=== PATIENT | female | born 1985 | race Two or more races ===

== ENCOUNTER 2024-02-05 13:26 | Inpatient (IN) | payer OTHER ==
[~2024-02-05] VITALS: Ht 157.5 cm; Wt 63.5 kg
[2024-02-05] MEDS ORDERED: KEPPRA1000 MG PO (14:00)
[2024-02-05] MEDS ORDERED: DEPAKOTE ER500 MG PO (14:00)
[2024-02-05] MEDS ORDERED: FELBATOL600 MG PO (14:01)
[2024-02-05] MEDS ORDERED: HALDOL DEC100 MG/1 M IM (14:02)
[2024-02-05] MEDS ORDERED: METFORMIN HCL500 M2 PO (14:02)
[2024-02-05] MEDS ORDERED: XCOPRI PO (14:03)
[2024-02-05] MEDS ORDERED: BENADRYL25 MG PO (14:04)
[2024-02-05] MEDS ORDERED: 0.9 % SODIUM CHLORIDE 500 ML IV ONE (14:45)
[2024-02-05] MEDS ORDERED: FAMOTIDINE/PF 20 MG/2 ML VIAL IV ONE (14:45)
[2024-02-05 16:00] LABS: HEMATOCRIT 42.8 % (36.0-45.00); HEMOGLOBIN 14.6 g/dL (12.0-15.00); MEAN CELL VOLUME 96.7 fL (80.00-100.00); MEAN CORPUSCULAR HEMOGLOBIN 33.1 pg (27.00-32.0); MEAN CORPUSCULAR HGB CONC 34.2 g/dl (32.0-36.0); PLATELET COUNT 249 K/uL (150-450); RED BLOOD COUNT 4.42 M/uL (4.00-6.00); RED CELL DISTRIBUTION WIDTH 13.9 % (11.5-14.5)
[2024-02-05] MEDS ORDERED: MEPERIDINE HCL 25 MG/ML AMPUL IV ONE (16:15)
[2024-02-05 16:22] LABS: ALBUMIN 3.8 gm/dL (3.4-5.0); BILIRUBIN TOTAL 0.27 mg/dL (0.3-1.2); CALCIUM 9.3 mg/dL (8.5-10.1); CREATININE SERUM 0.64 mg/dL (0.55-1.02); GFR 104.41; GLOBULINA 3.8 G/DL (2.4-3.5); POTASSIUM 3.51 mEq/L (3.5-5.1); TOTAL PROTEIN 7.6 gm/dL (6.4-8.2)
[2024-02-05 17:53] LABS: PH,URINE 6.5 (5.0-8.0); URINE APPEARANCE Clear; URINE BACTERIA 565.5 uL (0.0-1933); URINE BILIRRUBIN Negative (NEGATIVE); URINE BLOOD Negative; URINE COLOR Yellow; URINE EPITHELIAL CELLS 15.8 uL (0.0-38.8); URINE GLUCOSE Negative (NEGATIVE); URINE LEUKOCYTE Negative; URINE NITRATE Negative; URINE PROTEIN Negative (NEGATIVE); URINE RBC 13.7 uL (0.0-20.8); URINE UROBILINOGEN 0.2 E.U./dl; URINE WBC 5.2 uL (0.0-23.2)
[2024-02-05 18:00] LABS: URINE KETONE 40 (NEGATIVE)
[2024-02-05] MEDS ORDERED: DEXTROSE 50 % IN WATER 0.5 G/ML DISP.SYRIN IV PRN (21:45)
[2024-02-05] MEDS ORDERED: ONDANSETRON HCL 4 MG in 0.9 % SODIUM CHLORIDE 50 ML IV PRN (21:45)
[2024-02-05] MEDS ORDERED: PIPERACILLIN/TAZOBACTAM SODIUM 3.375 GM in DEXTROSE 5 % IN WATER 100 ML IV ONE (21:45)
[2024-02-05] MEDS ORDERED: 0.9 % SODIUM CHLORIDE 1,000 ML IV SCH (21:45)
[2024-02-05] MEDS ORDERED: MEPERIDINE HCL/PF 25 MG/ML VIAL IM PRN (21:45)
[2024-02-05] MEDS ORDERED: INSULIN LISPRO 1,000 UNIT/10 ML UNITS SUBCUTANEO PRN (21:45)
[2024-02-06] MEDS ORDERED: GABAPENTIN 300 MG CAPSULE PO SCH (01:27)
[2024-02-06] MEDS ORDERED: RINGERS SOLUTION,LACTATED 1,000 ML IV SCH ×2 (01:30→10:43)
[2024-02-06] MEDS ORDERED: MORPHINE SULFATE 4 MG/ML CARTRIDGE IV PRN (01:30)
[2024-02-06] MEDS ORDERED: SUGAMMADEX SODIUM 200 MG/2 ML VIAL IV ONE (04:15)
[2024-02-06] MEDS ORDERED: FAMOTIDINE/PF 20 MG in 0.9 % SODIUM CHLORIDE 8 ML IV PUSH SCH (09:00)
[2024-02-06 09:16] LABS: CALCIUM 8.8 mg/dL (8.5-10.1); CREATININE SERUM 0.66 mg/dL (0.55-1.02); GFR 100.77; MAGNESIUM 1.7 mg/dL (1.8-2.4); PHOSPHOROUS 3.9 mg/dL (2.5-4.9); POTASSIUM 3.96 mEq/L (3.5-5.1)
[2024-02-06] MEDS ORDERED: MAGNESIUM SULFATE IN WATER 50 ML IV NR (10:43)
[2024-02-06 12:00] VITALS: BP 127/83; O2SAT 98
[2024-02-06] MEDS ORDERED: LevETIRAcetam 500 MG/5 ML VIAL IV SCH (13:00)
[2024-02-06 16:00] VITALS: BP 152/80; O2SAT 100
[2024-02-06] MEDS ORDERED: DIVALPROEX SODIUM 500 MG TAB.ER.24H PO SCH (17:00)
[2024-02-06] MEDS ORDERED: POTASSIUM CHLORIDE/D5-0.45NACL 1,000 ML IV SCH (17:00)
[2024-02-06] MEDS ORDERED: LORazepam 2 MG/ML VIAL IV STA (19:16)
[2024-02-06] MEDS ORDERED: LORazepam 2 MG/ML VIAL IV PRN (19:30)
[2024-02-06] MEDS ORDERED: PANTOPRAZOLE SODIUM 40 MG/VIAL VIAL IV PUSH SCH (21:00)
[2024-02-06] MEDS ORDERED: PATIENTS OWN MEDICATION (MEDICAMENTO EN PISO) PO SCH (21:00)
[2024-02-07] VITALS: BP 150/80; O2SAT 98
[2024-02-07 06:10] LABS: HEMATOCRIT 32.5 % (36.0-45.00); HEMOGLOBIN 11.3 g/dL (12.0-15.00); MEAN CELL VOLUME 97.2 fL (80.00-100.00); MEAN CORPUSCULAR HEMOGLOBIN 33.9 pg (27.00-32.0); MEAN CORPUSCULAR HGB CONC 34.8 g/dl (32.0-36.0); PLATELET COUNT 262 K/uL (150-450); RED BLOOD COUNT 3.34 M/uL (4.00-6.00); RED CELL DISTRIBUTION WIDTH 14.8 % (11.5-14.5)
[2024-02-07 07:08] LABS: ALBUMIN 3.1 gm/dL (3.4-5.0); CALCIUM 9.3 mg/dL (8.5-10.1); CREATININE SERUM 0.68 mg/dL (0.55-1.02); GFR 97.36; MAGNESIUM 2.2 mg/dL (1.8-2.4); POTASSIUM 4.26 mEq/L (3.5-5.1)
[2024-02-07 07:27] LABS: PHOSPHOROUS 1.3 mg/dL (2.5-4.9)
[2024-02-07] MEDS ORDERED: DEXTROSE 5 % IN WATER 1,000 ML IV SCH (07:45)
[2024-02-07 07:47] LABS: HEMATOCRIT 33.6 % (36.0-45.00); HEMOGLOBIN 11.5 g/dL (12.0-15.00); MEAN CELL VOLUME 96.4 fL (80.00-100.00); MEAN CORPUSCULAR HGB CONC 34.3 g/dl (32.0-36.0); PLATELET COUNT 270 K/uL (150-450); RED BLOOD COUNT 3.49 M/uL (4.00-6.00); RED CELL DISTRIBUTION WIDTH 14.4 % (11.5-14.5)
[2024-02-07] MEDS ORDERED: NAPH,MB-DB/K PH,MBDB 1 PKT PACKET PO SCH (09:00)
[2024-02-07 09:57] VITALS: BP 160/82; O2SAT 98
[2024-02-07] MEDS ORDERED: LevETIRAcetam 5 MG/1 ML REDILUIDO IV SCH (13:00)
[2024-02-07 16:00] VITALS: BP 121/68; O2SAT 100
[2024-02-07] MEDS ORDERED: ENOXAPARIN SODIUM 40 MG/0.4 ML SYRINGE SUBCUTANEO SCH (17:00)
[2024-02-08 00:56] VITALS: BP 134/80; O2SAT 96
[2024-02-08] MEDS ORDERED: SUGAMMADEX SODIUM 200 MG/2 ML VIAL IV ONE (06:45)
[2024-02-08 07:14] LABS: HEMATOCRIT 36.5 % (36.0-45.00); HEMOGLOBIN 12.6 g/dL (12.0-15.00); MEAN CELL VOLUME 97.8 fL (80.00-100.00); MEAN CORPUSCULAR HEMOGLOBIN 33.7 pg (27.00-32.0); MEAN CORPUSCULAR HGB CONC 34.4 g/dl (32.0-36.0); PLATELET COUNT 253 K/uL (150-450); RED BLOOD COUNT 3.73 M/uL (4.00-6.00); RED CELL DISTRIBUTION WIDTH 14.5 % (11.5-14.5)
[2024-02-08 07:36] LABS: ALBUMIN 2.9 gm/dL (3.4-5.0); BILIRUBIN TOTAL 0.38 mg/dL (0.3-1.2); CALCIUM 9.1 mg/dL (8.5-10.1); CREATININE SERUM 0.68 mg/dL (0.55-1.02); GFR 97.36; GLOBULINA 3.3 G/DL (2.4-3.5); PHOSPHOROUS 2.6 mg/dL (2.5-4.9); POTASSIUM 3.47 mEq/L (3.5-5.1); TOTAL PROTEIN 6.2 gm/dL (6.4-8.2)
[2024-02-08 08:51] VITALS: BP 154/90; O2SAT 100
[2024-02-08] MEDS ORDERED: POTASSIUM CHLORIDE 20MEQ/100ML H2O PB IV ONE (14:00)
[2024-02-08 16:00] VITALS: BP 165/70; O2SAT 99
[2024-02-08] MEDS ORDERED: PATIENTS OWN MEDICATION (MEDICAMENTO EN PISO) PO SCH ×2 (21:00)
[2024-02-09 01:23] VITALS: BP 117/86; O2SAT 98
[2024-02-09] MEDS ORDERED: RINGERS SOLUTION,LACTATED 1,000 ML IV ONE (06:45)
[2024-02-09 07:42] LABS: CALCIUM 9.1 mg/dL (8.5-10.1); CREATININE SERUM 0.97 mg/dL (0.55-1.02); GFR 64.62; POTASSIUM 3.91 mEq/L (3.5-5.1)
[2024-02-09] MEDS ORDERED: PATIENTS OWN MEDICATION (MEDICAMENTO EN PISO) PO SCH ×2 (09:00)
[2024-02-09 10:01] VITALS: BP 145/89; O2SAT 96
[2024-02-09 17:00] VITALS: BP 107/84; O2SAT 98
[2024-02-10 00:47] VITALS: BP 170/80; O2SAT 98
[2024-02-10 07:33] LABS: HEMATOCRIT 34.6 % (36.0-45.00); HEMOGLOBIN 12.2 g/dL (12.0-15.00); MEAN CELL VOLUME 95.1 fL (80.00-100.00); MEAN CORPUSCULAR HEMOGLOBIN 33.4 pg (27.00-32.0); MEAN CORPUSCULAR HGB CONC 35.2 g/dl (32.0-36.0); PLATELET COUNT 359 K/uL (150-450); RED BLOOD COUNT 3.64 M/uL (4.00-6.00); RED CELL DISTRIBUTION WIDTH 14.3 % (11.5-14.5)
[2024-02-10 07:36] LABS: CALCIUM 9.1 mg/dL (8.5-10.1); CREATININE SERUM 0.64 mg/dL (0.55-1.02); GFR 104.41; POTASSIUM 3.69 mEq/L (3.5-5.1)
[2024-02-10 08:00] VITALS: BP 112/80; O2SAT 97
[2024-02-10] MEDS ORDERED: LevETIRAcetam 5 MG/1 ML REDILUIDO IV SCH (09:28)
[2024-02-10 19:02] VITALS: BP 124/90; O2SAT 97
[2024-02-10 23:48] VITALS: BP 154/73; O2SAT 98
[2024-02-11 09:50] VITALS: BP 148/74; O2SAT 98
[2024-02-11 16:28] VITALS: BP 159/94; O2SAT 99
[2024-02-12 10:23] LABS: HEMOGLOBIN 11.6 g/dL (12.0-15.00); MEAN CELL VOLUME 97.6 fL (80.00-100.00); MEAN CORPUSCULAR HEMOGLOBIN 33.4 pg (27.00-32.0); MEAN CORPUSCULAR HGB CONC 34.2 g/dl (32.0-36.0); PLATELET COUNT 372 K/uL (150-450); RED BLOOD COUNT 3.48 M/uL (4.00-6.00); RED CELL DISTRIBUTION WIDTH 14.8 % (11.5-14.5)
[2024-02-12 16:25] VITALS: BP 140/83; O2SAT 98
[2024-02-13] VITALS: BP 160/85; O2SAT 97
[2024-02-13 08:05] VITALS: BP 164/106; O2SAT 97
[2024-02-13] MEDS ORDERED: RINGERS SOLUTION,LACTATED 1,000 ML IV SCH (09:30)
[2024-02-13 12:29] LABS: CALCIUM 9.6 mg/dL (8.5-10.1); CREATININE SERUM 0.69 mg/dL (0.55-1.02); GFR 95.73; POTASSIUM 3.61 mEq/L (3.5-5.1)
[2024-02-13 15:42] VITALS: BP 137/93; O2SAT 95
[2024-02-14 00:55] VITALS: BP 136/80; O2SAT 96
[2024-02-14 08:24] VITALS: BP 123/85; O2SAT 95
[2024-02-14 12:30] LABS: CALCIUM 9.3 mg/dL (8.5-10.1); CREATININE SERUM 0.82 mg/dL (0.55-1.02); GFR 78.44; POTASSIUM 3.75 mEq/L (3.5-5.1)
[2024-02-14 15:39] VITALS: BP 147/96; O2SAT 98
[2024-02-15 00:05] VITALS: BP 139/86; O2SAT 98
[2024-02-15 07:11] LABS: CALCIUM 8.6 mg/dL (8.5-10.1); CREATININE SERUM 0.62 mg/dL (0.55-1.02); GFR 108.31
[2024-02-15 07:18] LABS: POTASSIUM 2.8 mEq/L (3.5-5.1)
[2024-02-15 08:26] VITALS: BP 126/87; O2SAT 95
[2024-02-15] MEDS ORDERED: POTASSIUM CHLORIDE/NACL 0.9% 1,000 ML IV SCH ×2 (09:32→21:45)
[2024-02-15] MEDS ORDERED: POTASSIUM BICARBONATE/CIT AC 25 MEQ TABLET.EFF PO SCH (13:00)
[2024-02-15] MEDS ORDERED: POTASSIUM CHLORIDE 10 MEQ CAPSULE PO SCH ×2 (13:00→17:00)
[2024-02-15 16:00] VITALS: BP 120/82; O2SAT 99
[2024-02-15 16:12] LABS: ANION GAP 7 (10.0-20.0); CALCIUM 8.4 mg/dL (8.5-10.1); CARBON DIOXIDE 33 mEq/L (21-32); CHLORIDE 110 mmol/L (98-107); GFR 94.15; GLUCOSE FASTING 125 mg/dL (65-100); SODIUM 147 mmol/L (136-145)
[2024-02-15 16:19] LABS: BLOOD UREA NITROGEN < 1 mg/dL (7-18); BUN CREA RATIO 1 (7.0-25.0); OSMOLALITY SERUM 290 MOSM/KG (275-295)
[2024-02-15 16:20] LABS: POTASSIUM 2.86 mEq/L (3.5-5.1)
[2024-02-16] VITALS: BP 138/90; O2SAT 95
[2024-02-16 07:04] LABS: CALCIUM 8.2 mg/dL (8.5-10.1); CREATININE SERUM 0.62 mg/dL (0.55-1.02); GFR 108.31; POTASSIUM 5.48 mEq/L (3.5-5.1)
[2024-02-16 08:00] VITALS: BP 101/57; O2SAT 97
== END 2024-02-16 14:00 | disposition home or self-care (01) | DRG 330 ==
LOC: ER 13:28 → SURG 21:40
PROVIDERS: Nurse Practitioner Family; Student in an Organized Health Care Education/Training Program; ADMIT Internal Medicine; ATTEND Internal Medicine
PROC: BW21YZZ Computerized Tomography (CT Scan) of Abdomen and Pelvis using Other Contrast (ICD-10-PCS; 2024-02-05)
PROC: 0DTN0ZZ Resection of Sigmoid Colon, Open Approach (ICD-10-PCS; principal; 2024-02-06)
PROC: 0D1E0Z4 Bypass Large Intestine to Cutaneous, Open Approach (ICD-10-PCS; 2024-02-06)
PROC: 0DJD0ZZ Inspection of Lower Intestinal Tract, Open Approach (ICD-10-PCS; 2024-02-06)
DX: K56.2 Volvulus (principal); E87.0 Hyperosmolality and hypernatremia; I97.89 Other postprocedural complications and disorders of the circulatory system, not elsewhere classified; K91.89 Other postprocedural complications and disorders of digestive system; F31.9 Bipolar disorder, unspecified; F20.9 Schizophrenia, unspecified; R56.9 Unspecified convulsions; K56.7 Ileus, unspecified

== ENCOUNTER 2024-04-03 08:33 | Outpatient (CLI) | payer OTHER ==
[~2024-04-03 08:33] MED LIST: BENADRYL25 MG PO; DEPAKOTE ER500 MG PO; FELBATOL600 MG PO; HALDOL DEC100 MG/1 M IM; KEPPRA1000 MG PO; METFORMIN HCL500 M2 PO; XCOPRI PO
== END 2024-04-03 08:36 | disposition home or self-care (01) ==
LOC: TOM 08:33
PROVIDERS: ATTEND Student in an Organized Health Care Education/Training Program
DX: Z93.3 Colostomy status (principal)
CPT/HCPCS: 74177; Q9965

== ENCOUNTER 2024-06-24 08:32 | Inpatient (IN) | payer OTHER ==
[~2024-06-24] VITALS: Ht 157.5 cm; Wt 62.6 kg
[2024-06-24 08:51] LABS: HEMATOCRIT 38.9 % (36.0-45.00); HEMOGLOBIN 13.2 g/dL (12.0-15.00); MEAN CELL VOLUME 97.1 fL (80.00-100.00); MEAN CORPUSCULAR HEMOGLOBIN 32.9 pg (27.00-32.0); MEAN CORPUSCULAR HGB CONC 33.9 g/dl (32.0-36.0); PLATELET COUNT 211 K/uL (150-450); RED BLOOD COUNT 4.01 M/uL (4.00-6.00); RED CELL DISTRIBUTION WIDTH 13.8 % (11.5-14.5)
[2024-06-24] MEDS ORDERED: KEPPRA XR500 MG PO (09:05)
[2024-06-24] MEDS ORDERED: CLONAZEPAM0.5 M1 PO (09:06)
[2024-06-24] MEDS ORDERED: MELATONIN5 M1 PO (09:07)
[2024-06-24] MEDS ORDERED: HALDOL DEC100 MG/1 M IM (09:08)
[2024-06-24 09:13] VITALS: BP 111/75
[2024-06-24 09:35] LABS: PH,URINE 6.5 (5.0-8.0); URINE APPEARANCE Clear; URINE BILIRRUBIN Negative (NEGATIVE); URINE BLOOD Negative; URINE COLOR Yellow; URINE GLUCOSE Negative (NEGATIVE); URINE KETONE Negative (NEGATIVE); URINE LEUKOCYTE Negative; URINE NITRATE Negative; URINE PROTEIN Negative (NEGATIVE); URINE UROBILINOGEN 0.2 E.U./dl
[2024-06-24 09:36] LABS: INR 0.95; PARTIAL THROMBOPLASTIN TIME 30.5 SECONDS (22.0-34.0); PROTHROMBIN TIME 10.4 SECONDS (9.0-11.5)
[2024-06-24 09:39] LABS: URINE BACTERIA 1277.7 uL (0.0-1933); URINE EPITHELIAL CELLS 22.1 uL (0.0-38.8); URINE RBC 2.3 uL (0.0-20.8); URINE WBC 14.7 uL (0.0-23.2)
[2024-06-24 09:47] LABS: URINE CAST 0.44 uL (0.0-1.40)
[2024-06-24 10:09] LABS: ALBUMIN 3.8 gm/dL (3.4-5.0); BILIRUBIN TOTAL 0.34 mg/dL (0.3-1.2); CALCIUM 9.2 mg/dL (8.5-10.1); CREATININE SERUM 0.6 mg/dL (0.55-1.02); GFR 111.88; GLOBULINA 3.4 G/DL (2.4-3.5); POTASSIUM 4.57 mEq/L (3.5-5.1); TOTAL PROTEIN 7.2 gm/dL (6.4-8.2)
[2024-07-02] MEDS ORDERED: BUPIVACAINE HCL/MPF 0.5% 30ML VIAL ONE (10:38)
[2024-07-02] MEDS ORDERED: CIPROFLOXACIN IN 5 % DEXTROSE 200 ML IV ONE (12:45)
[2024-07-02] MEDS ORDERED: METRONIDAZOLE/SODIUM CHLORIDE 100 ML IV ONE (12:45)
[2024-07-02] MEDS ORDERED: SUGAMMADEX SODIUM 200 MG/2 ML VIAL IV ONE (13:46)
[2024-07-02] MEDS ORDERED: MORPHINE SULFATE 4 MG/ML CARTRIDGE IV PRN (14:45)
[2024-07-02] MEDS ORDERED: RINGERS SOLUTION,LACTATED 1,000 ML IV SCH (14:45)
[2024-07-02] MEDS ORDERED: ONDANSETRON HCL 2 MG/ML VIAL IV PRN (14:45)
[2024-07-02] MEDS ORDERED: MORPHINE SULFATE 4 MG/ML VIAL IV ONE ×2 (15:00→15:30)
[2024-07-02 16:10] LABS: HEMATOCRIT 39.4 % (36.0-45.00); HEMOGLOBIN 13.3 g/dL (12.0-15.00); MEAN CORPUSCULAR HEMOGLOBIN 32.5 pg (27.00-32.0); MEAN CORPUSCULAR HGB CONC 33.8 g/dl (32.0-36.0); PLATELET COUNT 198 K/uL (150-450); RED CELL DISTRIBUTION WIDTH 14.1 % (11.5-14.5)
[2024-07-02] MEDS ORDERED: METRONIDAZOLE/SODIUM CHLORIDE 500 MG/100 ML PIGGYBACK IV ONE (16:17)
[2024-07-02 16:53] LABS: ALBUMIN 3.4 gm/dL (3.4-5.0); BILIRUBIN TOTAL 0.3 mg/dL (0.3-1.2); CALCIUM 8.8 mg/dL (8.5-10.1); CREATININE SERUM 0.69 mg/dL (0.55-1.02); GFR 95.22; GLOBULINA 2.9 G/DL (2.4-3.5); POTASSIUM 3.86 mEq/L (3.5-5.1); TOTAL PROTEIN 6.3 gm/dL (6.4-8.2)
[2024-07-02 16:56] VITALS: BP 132/84; O2SAT 96
[2024-07-02] MEDS ORDERED: METRONIDAZOLE/SODIUM CHLORIDE 500 MG/100 ML PIGGYBACK IV SCH (17:00)
[2024-07-02] MEDS ORDERED: GABAPENTIN 300 MG CAPSULE PO SCH (17:00)
[2024-07-02] MEDS ORDERED: ACETAMINOPHEN 325 MG TABLET PO SCH (17:00)
[2024-07-02 17:39] LABS: ALBUMIN 3.4 gm/dL (3.4-5.0); CALCIUM 8.7 mg/dL (8.5-10.1); CREATININE SERUM 0.72 mg/dL (0.55-1.02); GFR 90.65; MAGNESIUM 1.5 mg/dL (1.8-2.4); PHOSPHOROUS 3.3 mg/dL (2.5-4.9); POTASSIUM 3.88 mEq/L (3.5-5.1)
[2024-07-02] MEDS ORDERED: PATIENTS OWN MEDICATION (MEDICAMENTO EN PISO) PO SCH ×2 (17:41→18:30)
[2024-07-02] MEDS ORDERED: LevETIRAcetam 500 MG TAB. PO NR (18:30)
[2024-07-02 20:30] VITALS: BP 121/79; O2SAT 96
[2024-07-02] MEDS ORDERED: DIVALPROEX SODIUM 500 MG TABLET.DR PO SCH (21:00)
[2024-07-02] MEDS ORDERED: FAMOTIDINE/PF 20 MG/2 ML VIAL IV SCH (21:00)
[2024-07-02] MEDS ORDERED: CLONAZEPAM 0.5 MG TABLET PO SCH (21:00)
[2024-07-02] MEDS ORDERED: MELATONIN 5 MG TABLET PO SCH (21:00)
[2024-07-02] MEDS ORDERED: CIPROFLOXACIN IN 5 % DEXTROSE 400 MG/200 ML PIGGYBAG IV SCH (21:00)
[2024-07-03 00:01] VITALS: BP 125/80; O2SAT 98
[2024-07-03 08:00] VITALS: BP 113/75; O2SAT 95
[2024-07-03 08:49] LABS: HEMOGLOBIN 11.8 g/dL (12.0-15.00); MEAN CELL VOLUME 95.5 fL (80.00-100.00); MEAN CORPUSCULAR HEMOGLOBIN 33.2 pg (27.00-32.0); MEAN CORPUSCULAR HGB CONC 34.8 g/dl (32.0-36.0); PLATELET COUNT 187 K/uL (150-450); RED BLOOD COUNT 3.56 M/uL (4.00-6.00); RED CELL DISTRIBUTION WIDTH 13.6 % (11.5-14.5)
[2024-07-03] MEDS ORDERED: LevETIRAcetam 500 MG TAB. PO SCH (09:00)
[2024-07-03 09:32] LABS: CALCIUM 8.7 mg/dL (8.5-10.1); CREATININE SERUM 0.6 mg/dL (0.55-1.02); GFR 111.88; MAGNESIUM 1.5 mg/dL (1.8-2.4); PHOSPHOROUS 2.5 mg/dL (2.5-4.9); POTASSIUM 3.91 mEq/L (3.5-5.1)
[2024-07-03] MEDS ORDERED: MAGNESIUM SULFATE IN WATER 2 GM/50 ML PIGGYBAG IV NR (12:00)
[2024-07-03 16:00] VITALS: BP 114/78; O2SAT 96
[2024-07-03] MEDS ORDERED: ENOXAPARIN SODIUM 40 MG/0.4 ML SYRINGE SUBCUTANEO SCH (17:00)
[2024-07-04 00:46] VITALS: BP 116/81; O2SAT 95
[2024-07-04 08:00] VITALS: BP 115/80; O2SAT 97
[2024-07-04 11:36] LABS: HEMATOCRIT 34.5 % (36.0-45.00); HEMOGLOBIN 12.5 g/dL (12.0-15.00); MEAN CELL VOLUME 94.8 fL (80.00-100.00); MEAN CORPUSCULAR HEMOGLOBIN 34.3 pg (27.00-32.0); MEAN CORPUSCULAR HGB CONC 36.1 g/dl (32.0-36.0); PLATELET COUNT 193 K/uL (150-450); RED BLOOD COUNT 3.64 M/uL (4.00-6.00); RED CELL DISTRIBUTION WIDTH 13.8 % (11.5-14.5)
[2024-07-04 12:20] LABS: ALBUMIN 3.4 gm/dL (3.4-5.0); CALCIUM 9.2 mg/dL (8.5-10.1); CREATININE SERUM 0.75 mg/dL (0.55-1.02); GFR 86.48; MAGNESIUM 1.8 mg/dL (1.8-2.4); PHOSPHOROUS 2.2 mg/dL (2.5-4.9); POTASSIUM 3.97 mEq/L (3.5-5.1)
[2024-07-04 16:00] VITALS: BP 128/54; O2SAT 96
[2024-07-05 00:20] VITALS: BP 114/63; O2SAT 95
[2024-07-05] MEDS ORDERED: Calcium Acetate 667 MG CAP PO SCH (06:00)
[2024-07-05 08:00] VITALS: BP 118/82; O2SAT 97
== END 2024-07-05 11:47 | disposition home or self-care (01) | DRG 331 ==
LOC: SURH 07-02 07:30 → O/R 07-02 07:30 → SURH 07-02 08:00
PROVIDERS: ADMIT Student in an Organized Health Care Education/Training Program; ATTEND Student in an Organized Health Care Education/Training Program
PROC: 0DBE4ZZ Excision of Large Intestine, Percutaneous Endoscopic Approach (ICD-10-PCS; principal; 2024-07-02 08:00)
DX: K56.2 Volvulus (principal); Z93.3 Colostomy status

== ENCOUNTER 2025-03-12 21:10 | Emergency (ER) | payer OTHER ==
[~2025-03-12] VITALS: Ht 157.5 cm; Wt 67.6 kg
[~2025-03-12 21:10] MED LIST changes: +CLONAZEPAM0.5 M1 PO; +KEPPRA XR500 MG PO; +MELATONIN5 M1 PO
[2025-03-12 21:47] VITALS: BP 122/83; O2SAT 99
[2025-03-12] MEDS ORDERED: CEFTRIAXONE SODIUM 1,000 MG VIAL IM ONE (23:00)
[2025-03-12] MEDS ORDERED: TRAMADOL HCL 50 MG TABLET PO ONE (23:00)
[2025-03-13 00:58] LABS: BASO % 0.2 % (0.1-1.2); EOS # 0.06 (0.04-0.54); EOS % 0.7 % (0.7-7.0); LYMPH # 2.42 (1.18-3.74); LYMPH % 29.4 % (19.3-53.1); MEAN PLATELET VOLUME 9.40 fl (9.4-12.4); MONO # 0.44 (0.24-0.82); MONO % 5.4 % (4.7-12.5); NEUT # 5.27 (1.56-6.13); NEUT % 64.2 % (34.0-71.1); RED CELL DISTRIBUTION WIDTH 12.5 % (11.6-14.4)
[2025-03-13] MEDS ORDERED: PEPCID AC20 MG PO (01:05)
[2025-03-13] MEDS ORDERED: AMOX1TAB5 PO (01:05)
== END 2025-03-13 01:20 | disposition home or self-care (01) ==
LOC: ER 21:10
PROVIDERS: General Practice
DX: K12.2 Cellulitis and abscess of mouth (principal); F20.89 Other schizophrenia; F31.89 Other bipolar disorder; G40.89 Other seizures; Z88.6 Allergy status to analgesic agent; Z91.041 Radiographic dye allergy status
CPT/HCPCS: 36415; 70110; 96372; 99283; J0696